=== PATIENT | male | born 1960 | race Caucasian/White ===

== ENCOUNTER → 2023-02-17 13:55 | Outpatient (BNVA) | payer MEDICARE, MEDICAID, SELFPAY | PROVIDERS: PCP Family Medicine; Visit Provider Surgery | DX: R19.5 Other fecal abnormalities (principal); K43.9 Ventral hernia without obstruction or gangrene | CPT/HCPCS: 99204 ==

== ENCOUNTER 2023-03-08 08:40 | Emergency (ER) | payer MEDICARE, MEDICAID, SELFPAY ==
[2023-03-08] VITALS (9 sets, daily range): BP systolic 128–146; BP diastolic 80–103; PULSE 86–107; RESP 18–22; TEMP 36.5; O2SAT 90–98; BMI 27.2
--- NOTE | 2023-03-08 09:03 | ECG_ITS ---
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 Measurements Intervals [place] Rate: 94 P: 71 [place]: 150 QRS: 66 QRSD: 92 T: 67 QT: 332 QTc: 416 Interpretive Statements SINUS RHYTHM No previous ECG available for comparison Electronically Signed On 03-08-2023 19:51:34 CDT by Wilner Perez M.D. [id number]
--- NOTE | 2023-03-08 09:03 | XRR_ITS ---
PROCEDURE INFORMATION: Exam: XR Chest Exam date and time: 03/08/2023 9:16 AM Age: 62 years old Clinical indication: Shortness of breath; Additional info: SOB, copd TECHNIQUE: Imaging protocol: Radiologic exam of the chest. Views: 2 views. COMPARISON: No relevant prior studies available. FINDINGS: Lungs: The lung parenchyma is clear. Pleural spaces: No pneumothorax. No pleural effusion. Heart/Mediastinum: The cardiomediastinal silhouette is within normal limits. Bones/joints: Old posterior left rib fractures. XR/XR chest 2V* [id number] IMPRESSION: No acute cardiopulmonary abnormality identified.
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
[2023-03-08] MEDS: ipratropium-albuterol 3 mL Neb INHALATION (09:17)
[2023-03-08] MEDS: methylPREDNISolone sod succ 60 MG in water for injection-sterile 0.96 ML 11.52 MG IVP (09:23)
[2023-03-08 09:41] LABS: Basophils # 0.1 10^3/uL (0.0-0.1); Eosinophils # 1.3 10^3/uL (0.0-0.8); Hematocrit 46.9 % (42.0-52.0); Hemoglobin 15.5 g/dL (11.7-16.6); Lymphocytes # 1.9 10^3/uL (0.8-4.8); Lymphocytes % 19.6 %; Mean Corpuscular Hemoglobin 30.9 pg (28.0-34.0); Mean Corpuscular Volume 93.6 fl (80-94); Mean Platelet Volume 11.9 fL (7.4-10.4); Monocytes # 0.8 10^3/uL (0.2-0.9); Neutrophils # 5.44 10^3/uL (1.8-7.7); Neutrophils % 57.1 %; Nucleated Red Blood Cells % 0 %; Platelet Count 265 10^3/cmm (130-400); Red Blood Count 5.01 10^6/uL (4.1-5.3); Red Cell Distribution Width 13.8 % (12.1-15.1); White Blood Count 9.5 10^3/uL (4.0-10.0)
[2023-03-08 09:50] LABS: INR 0.93 (0.8-1.2)
[2023-03-08 09:59] LABS: Alanine Aminotransferase 20 U/L (0-41); Alkaline Phosphatase 86 U/L (40-130); Anion Gap 19.2 (5-19); Aspartate Amino Transferase 22 U/L (0-40); Blood Urea Nitrogen 13 mg/dL (8-23); Calcium 10.1 mg/dL (8.5-10.5); Carbon Dioxide 24 mmol/L (22-29); Chloride 98 mmol/L (98-107); Globulin 3.7 g/dL (1.3-4.6); Glomerular Filtration Rate 85.8 mL/min (90-130); Glucose 99 mg/dL (65-115); Osmolality Calculated 284 mOsm/kg (285-295); Potassium 4.2 mmol/L (3.5-5.1); Sodium 137 mmol/L (136-145); Total Bilirubin 0.6 mg/dL (0.15-1.2); Total Protein 8.7 g/dL (6.6-8.7)
[2023-03-08 10:00] LABS: Troponin(5th) Baseline 10 ng/L (0-15)
[2023-03-08 10:04] LABS: Influenza A by IFA negative (Negative); Influenza B by IFA negative (Negative)
[2023-03-08 10:05] LABS: Procalcitonin 0.08 ng/mL (0-0.5)
[2023-03-08] MEDS: albuterol 2.5 mg/3 mL Neb 10 MG INHALATION (10:23)
--- NOTE | 2023-03-08 10:55 | PC.PHAR ---
pt states he takes care of his own medications-pt states he thinks he is taking mobic 7.5mg daily [facility] is not open on sundays to verify medications and last fill dates
--- NOTE | 2023-03-08 11:15 | ECG_ITS ---
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 Measurements Intervals [place] Rate: 84 P: 80 [place]: 146 QRS: 56 QRSD: 94 T: 56 QT: 370 QTc: 439 Interpretive Statements SINUS RHYTHM Compared to ECG 03/08/2023 09:00:20 No significant changes Electronically Signed On 03-08-2023 20:04:48 CDT by Wilner Perez M.D. [id number]
== END 2023-03-08 12:33 | disposition home or self-care (01) ==
PROVIDERS: Physician Assistant; Emergency Provider Internal Medicine; PCP Family Medicine
DX: J44.1 Chronic obstructive pulmonary disease with (acute) exacerbation (principal); E78.5 Hyperlipidemia, unspecified; I10 Essential (primary) hypertension; Z79.899 Other long term (current) drug therapy; Z79.01 Long term (current) use of anticoagulants
CPT/HCPCS: 71046; 80053; 83735; 84145; 84484; 85025; 85610; 87804; 93005; 94640; 96374; 99285; J2930; J7613

== ENCOUNTER 2023-03-20 07:53 | Day surgery (SDC) | payer MEDICARE, MEDICAID, SELFPAY ==
[2023-03-18 13:27] VITALS: BMI 27.2
[2023-03-20 08:18] VITALS: BP 152/88; PULSE 76; RESP 18; TEMP 36.4; O2SAT 96
[2023-03-20] MEDS: sodium chloride 0.9% 1,000 ML 30 ML IV (08:27)
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
[2023-03-20 10:39] VITALS: BP 102/77; PULSE 75; RESP 16; TEMP 36.1; O2SAT 92
[2023-03-20 11:06] VITALS: BP 118/81; PULSE 64; RESP 18; O2SAT 98
--- NOTE | 2023-03-20 13:07 | ANE.PACU2 ---
Inpatient post-anesthesia follow up: Airway intact: Yes Vital signs: Temperature 97.0 F Pulse Rate 64 Respiratory Rate 18 Blood Pressure 118/81 Pulse Oximetry 98 Oxygen Delivery Me thod Room Air Oxygen Flow Rate Fraction of Inspir ed Oxygen Hydration adequate: Yes Nausea and vomiting: No Pain level: 2 Mental status: Baseline
== END 2023-03-20 11:30 | disposition home or self-care (01) ==
PROVIDERS: PCP Family Medicine; Visit Provider Surgery
PROC: 0DJD8ZZ Inspection of Lower Intestinal Tract, Via Natural or Artificial Opening Endoscopic (ICD-10-PCS; CPT 45378; principal; 2023-03-20 09:00)
DX: Z12.11 Encounter for screening for malignant neoplasm of colon (principal); D12.5 Benign neoplasm of sigmoid colon; K63.5 Polyp of colon
CPT/HCPCS: 45385; 45388; 88305; J2704; J7030

== ENCOUNTER 2023-04-02 08:09 | Day surgery (SDC) | payer MEDICARE, MEDICAID, SELFPAY ==
[2023-04-01 09:00] VITALS: BMI 27.2
[2023-04-02] VITALS (12 sets, daily range): BP systolic 107–140; BP diastolic 68–94; PULSE 57–85; RESP 13–20; TEMP 36.1–36.6; O2SAT 94–100
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
[2023-04-02] MEDS: sodium chloride 0.9% 1,000 ML 30 ML IV (08:39)
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
[2023-04-02] MEDS: ceFAZolin 2,000 MG in sodium chloride 0.9% (plus) 50 ML 100 MG IV (09:53)
[2023-04-02] MEDS: lidocaine-epi 2% 20 mL INJ INJECTION (10:19)
--- NOTE | 2023-04-02 10:39 | PM.OP ---
Operative Report Date of procedure: April 02, 2023 Pre-op diagnosis: Ventral hernia Post-op diagnosis: same Procedure done: Laparoscopic repair of ventral hernia with mesh Implants: 11 cm round Ventralight mesh Specimens removed/disposition: Hernia sac Surgeon: Dr. Alex Larsen DO Anesthesia: General Estimated blood loss (mL): 5 Complications: None apparent Brief History: This very pleasant 62-year-old gentleman who presented to my office with a ventral hernia supraumbilically. Laparoscopic repair with mesh was indicated. The risk and benefits were explained and documented. Procedure: Patient was wheeled into the operative room and placed on the OR table in a supine position. Abdomen was inspected prepped and draped in usual sterile fashion. Time-out was performed and all present were in agreement. A 15 blade scalp was used to make a 5 millimeter incision left upper quadrant. A Veress needle was placed into the incision and intra-abdominal insufflation was brought to 15 millimeters of mercury. A 12 millimeter trocar was placed into the left lower quadrant. The energy but device was then used to cut out the hernia sac. Hernia defect measured 1.5 cm in diameter. An 11 cm ventral light mesh was placed into the abdomen and brought up through the umbilicus using an the Bert-Wanda. The mesh was then tacked in place in a double crown fashion. The skeleton of the mesh was removed via the left lower quadrant. The hernia sac was then removed from the abdomen via the left lower quadrant. The left lower quadrant port site was closed with an 0 Vicryl suture in a Bert-Wanda in a [id number] fashion. Incisions were closed with 4 O Vicryl in a subcuticular interrupted fashion. Skin glue was applied. Patient tolerated the procedure well.
[2023-04-02] MEDS: fentaNYL 50 mcg/mL INJ 2mL IVP (11:14)
[2023-04-02] MEDS: HYDROcodone-acetaminophen 10-325 mg Tablet 1 TAB PO (11:47)
--- NOTE | 2023-04-02 12:05 | ANE.PACU2 ---
Inpatient post-anesthesia follow up: Airway intact: Yes Vital signs: Temperature 97.8 F Pulse Rate 64 Respiratory Rate 16 Blood Pressure 107/70 Pulse Oximetry 96 Oxygen Delivery Me thod Room Air Oxygen Flow Rate Fraction of Inspir ed Oxygen Hydration adequate: Yes Nausea and vomiting: No Pain level: 1 Mental status: Baseline
== END 2023-04-02 12:05 | disposition home or self-care (01) ==
PROVIDERS: PCP Family Medicine; Visit Provider Surgery
PROC: 0WQF4ZZ Repair Abdominal Wall, Percutaneous Endoscopic Approach (ICD-10-PCS; CPT 49595; principal; 2023-04-02 09:35)
DX: K43.9 Ventral hernia without obstruction or gangrene (principal); J44.9 Chronic obstructive pulmonary disease, unspecified; E78.5 Hyperlipidemia, unspecified; I10 Essential (primary) hypertension; Z99.81 Dependence on supplemental oxygen; K21.9 Gastro-esophageal reflux disease without esophagitis
CPT/HCPCS: 49595; 88302; C1781; J0131; J0690; J1100; J1885; J2405; J2704; J3010; J3490; J7030

== ENCOUNTER 2023-04-07 07:54 | Outpatient (CLI) | payer MEDICARE, MEDICAID, SELFPAY ==
--- NOTE | 2023-04-07 | MR_ITS ---
WS: [id number] MRI CERVICAL SPINE NONCONTRAST HISTORY: SPONDYLOSIS W/RADICULOPATHY COMPARISON: None available. Technique: Multiplanar, multisequence noncontrast imaging of the cervical spine. Straightening and reversal of the normal cervical lordosis. Signal within the cervical cord is normal. Visualized posterior fossa is unremarkable. Disc spaces are narrowed. Osteophytes throughout the cervical spine. No acute fracture or marrow christy a. Very mild anterior wedging of C4. C2-C3: Shallow central disc protrusion and mild osteophytic ridging. Mild bilateral facet arthritis. Moderate LEFT foraminal stenosis predominantly due to an osteophyte. C3-C4: Mild annular disc bulging with osteophytic ridging. Moderate facet arthritis. Moderate bilater al foraminal stenosis predominantly due to osteophytes. C4-C5: Diffuse annular disc bulging diffuse osteophytic ridging. RIGHT paracentral disc osteophyte co mplex. Effacement of ventral CSF by disc and osteophyte. Moderate central and bilateral foraminal herson nosis. C5-C6: Continued osteophytic ridging, annular disc bulging and facet arthritis. Disc contacts the becky tral thecal sac. Moderate central and bilateral foraminal stenosis. C6-C7: Mild annular disc bulging with facet and ligamentum flavum hypertrophy. Moderate sized disc os teophyte complexes in the foramina. Moderate central, severe RIGHT and moderate LEFT foraminal stenos is. C7-T1: Marked facet joint arthritis encroaching upon the thecal sac. Facet joint arthropathy and fora edward osteophytes. Mild central with moderate bilateral foraminal stenosis. Paraspinal soft tissue are normal. IMPRESSION: 1. No acute cervical spine fracture. 2. C2-3 moderate LEFT foraminal stenosis predominantly due to an osteophyte. 3. C3-4: Moderate bilateral foraminal stenosis. 4. C4-5, C5-6: Moderate central and bilateral foraminal stenosis due to combination of osteophytes an d disc disease. 5. C6-7: Moderate central, severe RIGHT and moderate LEFT foraminal stenosis due to facet joint arthr itis, facet and disc disease. 6. C7-T1: Mild central with moderate bilateral foraminal stenosis. 7. Straightening and reversal of the normal cervical lordosis.
--- NOTE | 2023-04-07 08:03 | MR_ITS ---
WS: [id number] MRI LUMBAR SPINE NONCONTRAST HISTORY: LUMBAR SPONDYLOSIS COMPARISON: None available. TECHNIQUE: Sagittal and axial multisequence imaging is submitted. Mild straightening of the normal lumbar lordosis. Slight reversal of the normal curvature centered at L1. Mild anterior wedging of L1 by 20% with slight bowing and retropulsion of the posterior superior endplate by 2 to 3 mm. No contact on the conus. Very minimal disc base narrowing and desiccation thr oughout the lumbar spine. Normal lumbar alignment with no compression fractures or marrow edema. Disc spaces and vertebral body heights are well-preserved. Conus terminates normally at L1-2 disc level. T12-L1: Bilateral facet arthritis. RIGHT facet joint arthritis encroaching upon the RIGHT lateral the maria esther sac. L1-L2: Mild annular disc bulging and facet arthritis. Mild bilateral foraminal stenosis. L2-L3: Mild annular disc bulge, ligamentum flavum and facet arthritis. There is a shallow LEFT forami nal disc protrusion. Moderate LEFT facet arthropathy. L3-L4: Mild annular disc bulging with mild ligamentum flavum and facet arthritis. There is mild encro achment upon the subarticular recesses and mild foraminal narrowing. L4-L5: Mild annular disc bulging with a shallow LEFT foraminal disc protrusion and annular fissure. M oderate bilateral facet joint arthritis and mild ligamentum flavum hypertrophy. Mild bilateral subart icular recess and foraminal narrowing. L5-S1: Mild annular disc bulging. RIGHT foraminal disc protrusion contacting the exiting RIGHT L5 ner ve root. Mild RIGHT foraminal stenosis. Paravertebral soft tissues are negative IMPRESSION: 1. Remote L1 anterior wedging by 20% with slight bowing of the posterior superior endplate. No cord c ontact. 2. Multilevel mild to moderate facet arthropathy throughout the lumbar spine. 3. L5-S1: RIGHT foraminal disc protrusion contacting the exiting RIGHT L5 nerve root. Mild RIGHT fora edward stenosis. 4. L4-5: Shallow LEFT foraminal disc protrusion with annular fissure. Mild bilateral subarticular rec ess and foraminal narrowing. 5. L3-4: Mild subarticular recess and mild foraminal stenosis.
== END 2023-04-07 07:55 | disposition home or self-care (01) ==
PROVIDERS: PCP Family Medicine; Visit Provider General Practice
DX: M47.22 Other spondylosis with radiculopathy, cervical region (principal); M47.816 Spondylosis without myelopathy or radiculopathy, lumbar region; M48.07 Spinal stenosis, lumbosacral region; M51.27 Other intervertebral disc displacement, lumbosacral region; M48.56XA Collapsed vertebra, not elsewhere classified, lumbar region, initial encounter for fracture
CPT/HCPCS: 72141; 72148

== ENCOUNTER → 2023-04-14 08:11 | Outpatient (BNVA) | payer MEDICARE, MEDICAID, SELFPAY | PROVIDERS: PCP Family Medicine; Visit Provider Surgery | DX: Z98.890 Other specified postprocedural states (principal); Z87.19 Personal history of other diseases of the digestive system | CPT/HCPCS: 99024 ==

== ENCOUNTER → 2023-05-21 11:42 | Outpatient (BNVA) | payer MEDICARE, MEDICAID, SELFPAY | PROVIDERS: PCP Family Medicine; Visit Provider Internal Medicine Pulmonary Disease | DX: J45.50 Severe persistent asthma, uncomplicated (principal); J82.83 Eosinophilic asthma; R06.02 Shortness of breath; Z79.52 Long term (current) use of systemic steroids; Z57.9 Occupational exposure to unspecified risk factor | CPT/HCPCS: 36415; 82785; 86003; 99204 ==

== ENCOUNTER 2023-06-18 06:53 | Outpatient (CLI) | payer MEDICARE, MEDICAID, SELFPAY ==
[2023-06-18 07:25] VITALS: PULSE 67; RESP 18; O2SAT 97
[2023-06-18] MEDS: albuterol 2.5 mg/3 mL Neb INHALATION (07:25)
[2023-06-18 07:29] VITALS: PULSE 73
== END 2023-06-18 06:54 | disposition home or self-care (01) ==
LOC: RT 06:54
PROVIDERS: PCP Family Medicine; Visit Provider Internal Medicine Pulmonary Disease
DX: R06.02 Shortness of breath (principal)
CPT/HCPCS: 94060; 94618; 94726; 94729; J7613

== ENCOUNTER 2023-07-22 08:07 | Oncology outpatient (recurring) (ONCR) | payer MEDICARE, MEDICAID, SELFPAY ==
[2023-07-22 08:49] VITALS: BP 134/79; PULSE 90; RESP 18; TEMP 36.8; O2SAT 98
[2023-07-22 09:21] VITALS: BP 142/82; PULSE 79; RESP 16; TEMP 36.6; O2SAT 99
== END 2023-08-02 23:59 | disposition home or self-care (01) ==
LOC: ONCMED 08:09
PROVIDERS: PCP Family Medicine; Visit Provider Internal Medicine Pulmonary Disease
DX: J82.83 Eosinophilic asthma (principal)
CPT/HCPCS: 96372; 96401

== ENCOUNTER → 2023-08-21 08:13 | Outpatient (BNVA) | payer MEDICARE, MEDICAID, SELFPAY | PROVIDERS: PCP Family Medicine; Visit Provider Internal Medicine Pulmonary Disease | DX: J45.50 Severe persistent asthma, uncomplicated (principal); Z79.52 Long term (current) use of systemic steroids | CPT/HCPCS: 99214 ==

== ENCOUNTER 2023-11-09 12:46 | Outpatient (CLI) | payer MEDICARE, MEDICAID, SELFPAY ==
--- NOTE | 2023-11-09 13:03 | XR_ITS ---
WS: [id number] LEFT SHOULDER: 3 VIEW(S) TECHNIQUE: Internal and external rotation with Y view. HISTORY: L SHOULDER PAIN COMPARISON: None available. Mild AC joint narrowing with small osteophytes. Mild glenohumeral joint narrowing. There are small ca lcific or osseous density in the expected location of the axillary pouch. There is also calcific tend initis. RIGHT upper thorax is negative. Multiple contiguous healed rib fractures in the LEFT thorax. IMPRESSION: 1. No acute fracture. 2. Moderate arthropathy LEFT AC joint. 3. Moderate joint space narrowing glenohumeral joint with small loose bodies. 4. Calcific tendinitis in the distal supraspinatus tendons. 5. Remote healed rib fractures in the posterior LEFT thorax.
== END 2023-11-09 12:47 | disposition home or self-care (01) ==
LOC: RAD 12:46
PROVIDERS: PCP Family Medicine; Visit Provider General Practice
DX: M75.32 Calcific tendinitis of left shoulder (principal); M25.512 Pain in left shoulder
CPT/HCPCS: 73030

== ENCOUNTER → 2024-04-20 07:07 | Outpatient (BNVA) | payer MEDICARE, MEDICAID, SELFPAY | PROVIDERS: PCP Family Medicine; Visit Provider Internal Medicine Critical Care Medicine | DX: J82.83 Eosinophilic asthma (principal); J45.50 Severe persistent asthma, uncomplicated; Z79.52 Long term (current) use of systemic steroids | CPT/HCPCS: 99213 ==